=== PATIENT | female | born 1965 | race African-American/Black ===

== ENCOUNTER 2018-01-20 19:36 | Emergency (ER) | payer SELFPAY ==
[~2018-01-20] VITALS: Ht 165.1 cm; Wt 96.6 kg
[2018-01-20 20:05] VITALS: BP 109/76
[2018-01-20] MEDS ORDERED: ASPirin 81 mg TAB PO ONE (20:15)
[2018-01-20 20:38] LABS: Urine Bacteria NONE SEEN /hpf (None Seen); Urine Blood 1+ /uL (Negative); Urine Specific Gravity 1.021 (1.001-1.035); Urine WBC 1 /hpf (0 - 5)
[2018-01-20 20:59] LABS: Basophils # (auto) 0 uL; Basophils % (auto) 0.5 % (0.0-2.0); Eosinophils # (auto) 0.5 uL; Eosinophils % (auto) 5.7 % (0.0-7.0); Hematocrit 36.4 % (36.0-46.0); Hemoglobin 12.5 g/dL (12.2-16.2); Lymphocytes # (auto) 3.6 uL; Lymphocytes % (auto) 44.4 % (10.0-50.0); Mean Corpuscular Hemoglobin 30.6 pg (28.0-32.0); Mean Corpuscular Hgb Conc. 34.3 g/dL (32.0-36.0); Mean Corpuscular Volume 89.2 fL (80.0-100.0); Monocytes # (auto) 0.6 uL; Monocytes % (auto) 7.2 % (0.0-12.0); Neutrophils # (auto) 3.4 uL; Neutrophils % (auto) 42.2 % (37.0-80.0); Nucleated Red Blood Cells % 0.2 %; Platelet Count (auto) 290 10^3/uL (140-450); Red Blood Cells 4.09 10^6/uL (4.0-5.20); Red Cell Distribution Width 12.7 % (11.8-14.3); White Blood Cell 8.1 10^3/uL (4.4-10.8)
[2018-01-20 21:17] LABS: INR 0.89 (0.9-1.15); Partial Thromboplastin Time 27.8 sec (23.78-33.04); Prothrombin Time 9.6 sec (9.27-12.13)
[2018-01-20 21:26] LABS: Alanine Aminotransferase 21 U/L (13-56); Albumin 3.5 g/dL (3.4-5.0); Alkaline Phosphatase 67 U/L (45-117); Anion Gap 2 (5-15); Aspartate Aminotransferase 16 U/L (15-37); BUN/Creatinine Ratio 12.2; Bilirubin, Total 0.2 mg/dL (0.2-1.0); Blood Urea Nitrogen 9 mg/dL (7-18); Calcium 8.8 mg/dL (8.5-10.1); Carbon Dioxide 29 mmol/L (21-32); Chloride 110 mmol/L (98-107); GFR African American 106 mL/min; GFR Non-African American 88 mL/min; Glucose 104 mg/dL (74-106); Potassium 3.8 mmol/L (3.5-5.1); Sodium 141 mmol/L (136-145); Total Protein 7.8 g/dL (6.4-8.2)
== END 2018-01-21 01:00 | disposition left against medical advice (07) ==
LOC: ER 19:36
DX: R07.89 Other chest pain (principal); R06.02 Shortness of breath; Z53.21 Procedure and treatment not carried out due to patient leaving prior to being seen by health care provider
CPT/HCPCS: 36415; 71046; 80053; 81001; 84484; 85025; 85379; 85610; 85730

== ENCOUNTER 2018-06-25 14:34 | Inpatient (IN) | payer SELFPAY ==
[~2018-06-25] VITALS: Ht 165.1 cm; Wt 95.8 kg
[2018-06-25 15:07] LABS: Basophils # (auto) 0 uL; Basophils % (auto) 0.3 % (0.0-2.0); Eosinophils # (auto) 0.3 uL; Eosinophils % (auto) 4.1 % (0.0-7.0); Hematocrit 33.6 % (36.0-46.0); Hemoglobin 11.3 g/dL (12.2-16.2); Lymphocytes # (auto) 2.7 uL; Lymphocytes % (auto) 36.8 % (10.0-50.0); Mean Corpuscular Hgb Conc. 33.6 g/dL (32.0-36.0); Mean Corpuscular Volume 86.3 fL (80.0-100.0); Monocytes # (auto) 0.8 uL; Monocytes % (auto) 10.7 % (0.0-12.0); Neutrophils # (auto) 3.5 uL; Neutrophils % (auto) 48.1 % (37.0-80.0); Nucleated Red Blood Cells % 0.1 %; Platelet Count (auto) 301 10^3/uL (140-450); Red Blood Cells 3.89 10^6/uL (4.0-5.20); Red Cell Distribution Width 11.8 % (11.8-14.3); White Blood Cell 7.2 10^3/uL (4.4-10.8)
[2018-06-25] MEDS ORDERED: ALBUTEROL SULF 2.5 MG/0.5ML(0.5%) NEB SOLN HHN ONE (15:15)
[2018-06-25] MEDS ORDERED: predniSONE 20 MG TAB PO ONE ×2 (15:15)
[2018-06-25] MEDS ORDERED: IPRATROPIUM BROM 0.5 MG/2.5ML INH SOL HHN ONE (15:15)
[2018-06-25 15:23] LABS: Alanine Aminotransferase 43 U/L (13-56); Albumin 3.1 g/dL (3.4-5.0); Anion Gap 6 (5-15); Aspartate Aminotransferase 27 U/L (15-37); Blood Urea Nitrogen 12 mg/dL (7-18); Calcium 8.9 mg/dL (8.5-10.1); Carbon Dioxide 28 mmol/L (21-32); Chloride 108 mmol/L (98-107); Glucose 101 mg/dL (74-106); Potassium 3.6 mmol/L (3.5-5.1); Sodium 142 mmol/L (136-145)
[2018-06-25 15:28] LABS: Alkaline Phosphatase 48 U/L (45-117); Bilirubin, Total 0.3 mg/dL (0.2-1.0); GFR African American 167 mL/min; GFR Non-African American 138 mL/min; Total Protein 7.1 g/dL (6.4-8.2)
[2018-06-25 15:59] LABS: INR 0.95 (0.9-1.15); Partial Thromboplastin Time 25.6 sec (23.78-33.04); Prothrombin Time 10.2 sec (9.27-12.13)
[2018-06-25] MEDS ORDERED: SODIUM CHLORIDE 0.9% 2,950 ML IV ONE (20:00)
[2018-06-25] MEDS ORDERED: METOPROLOL TARTRATE 1MG/1ML-5ML VIAL IV ONE ×2 (20:00→20:45)
[2018-06-25] MEDS ORDERED: SODIUM CHLORIDE 0.9% 1,000 ML IV ONE (21:00)
[2018-06-25] MEDS ORDERED: ONDANSETRON HCL 4 MG/2 ML VIAL IV PRN (23:15)
[2018-06-25] MEDS ORDERED: ALPRAZolam 0.25 MG TAB PO PRN (23:15)
[2018-06-25] MEDS ORDERED: MORPHINE SULFATE 4 MG/ML SYR/VIAL IV PRN (23:15)
[2018-06-25] MEDS ORDERED: ACETAMINOPHEN 500 MG TAB PO PRN (23:15)
[2018-06-26 00:18] LABS: Free T4 (Free Thyroxine) 4.51 ng/dL (0.89-1.76)
[2018-06-26 00:19] LABS: T3 Total 5.54 ng/mL (0.60-1.81)
--- NOTE | 2018-06-26 00:30 | NUR ---
Telemetry admit from ER JALYN OLSEN admitted to Telemetry unit after SBAR received. Patient oriented to GENTRY PATINO, primary RN, unit, room, bed, and unit policies regarding patient care and visiting hours. Patient now on continuous telemetry monitoring, tele box # [id number] and telemetry reading on arrival to unit is ST 100's. Patient, awake, alert, and oriented x4. No S/S of distress/SOB on room air. Denies chest pain. Bed locked and in lowest position and call light is within reach. Instructed on POC and to call for assist PRN, and patient verbalized understanding. Will continue to monitor for changes Q1hr and PRN.
[2018-06-26 05:40] VITALS: BP 142/68
[2018-06-26 05:43] LABS: BUN/Creatinine Ratio 31.3; Calcium 8.7 mg/dL (8.5-10.1)
[2018-06-26 05:46] LABS: Basophils # (auto) 0 uL; Basophils % (auto) 0.1 % (0.0-2.0); Eosinophils # (auto) 0 uL; Hematocrit 30.1 % (36.0-46.0); Hemoglobin 10.4 g/dL (12.2-16.2); Lymphocytes # (auto) 1.4 uL; Lymphocytes % (auto) 20.8 % (10.0-50.0); Mean Corpuscular Hemoglobin 29.4 pg (28.0-32.0); Mean Corpuscular Hgb Conc. 34.4 g/dL (32.0-36.0); Mean Corpuscular Volume 85.3 fL (80.0-100.0); Monocytes # (auto) 0.2 uL; Monocytes % (auto) 3.4 % (0.0-12.0); Neutrophils # (auto) 5.2 uL; Neutrophils % (auto) 75.7 % (37.0-80.0); Nucleated Red Blood Cells % 0.1 %; Platelet Count (auto) 281 10^3/uL (140-450); Red Blood Cells 3.53 10^6/uL (4.0-5.20); Red Cell Distribution Width 11.8 % (11.8-14.3); White Blood Cell 6.9 10^3/uL (4.4-10.8)
[2018-06-26] MEDS: FAMOTIDINE 20 MG TAB PO SCH ×2 (06:08→17:50)
--- NOTE | 2018-06-26 07:38 | NUR ---
OPENING SHIFT PATIENT IS AWAKE AND ALERT, ORIENTED X4. NO S/S OF DISTRESS, OR SOB. PATIENT DENIES PAIN AT THIS TIME. RESPIRATIONS ARE EVEN AND UNLABORED. DISCUSSED POC WITH PATIENT, PATIENT VERBALIZED UNDERSTANDING. BED IS IN LOWEST POSITION, SIDE RAILS UPX2, AND CALL LIGHT WITHIN REACH. WILL CONTINUE TO MONITOR Q1 HOUR AND PRN.
[2018-06-26 09:00] VITALS: BP 144/55
[2018-06-26 09:30] LABS: Urine Bacteria NONE SEEN /hpf (None Seen); Urine Blood Negative /uL (Negative); Urine WBC 1 /hpf (0 - 5)
[2018-06-26] MEDS ORDERED: PROPRANOLOL HCL 20 MG TAB PO SCH (10:00)
[2018-06-26] MEDS: ASPirin-EC 81 mg tab PO SCH (10:26)
[2018-06-26 12:28] VITALS: BP 117/44
--- NOTE | 2018-06-26 13:50 | NUR ---
DR. Henrik MARC M.D AT BEDSIDE. DISCUSSED POC WITH PATIENT. PATIENT VERBALIZED UNDERSTANDING.
--- NOTE | 2018-06-26 14:39 | NUR ---
FAMILY AT BEDSIDE UPDATED PATIENT THAT CARDIOLOGY CONSULT HAS BEEN CALLED INTO DR. VILLATORO. ANSWERED ALL QUESTIONS AND CONCERNS. PATIENT SHOWS NO S/S OF DISTRESS, SOB, OR PAIN. WILL CONTINUE TO MONITOR Q1 HOUR AND PRN
[2018-06-26] MEDS ORDERED: IOHEXOL 350 MG/ML 100ML IJ ONE (15:37)
--- NOTE | 2018-06-26 16:25 | NUR ---
PATIENT DOWN FOR C/T SCAN PATIENT DOWN FOR C/T ANGIO SCAN OF THE CHEST PATIENT TRANSPORTED VIA WHEEL CHAIR BY STAFF NO S/S OF DISTRESS, SOB, OR PAIN AT TIME OF DEPARTURE
[2018-06-26 17:00] VITALS: BP 123/63
--- NOTE | 2018-06-26 18:40 | NUR ---
DR SHAUNA Seaman AT BEDSIDE DISCUSSING POC
--- NOTE | 2018-06-26 18:50 | NUR ---
END OF SHIFT PATIENT AWAKE IN BED WATCHING T.V. NO S/S OF DISTRESS, SOB, OR PAIN. RESPIRATIONS EVEN AND UNLABORED. BED IS IN LOWEST POSITION, SIDE RAILS UP X2, AND CALL LIGHT WITHIN REACH. WILL ENDORSE CARE TO NOC R.N.
--- NOTE | 2018-06-26 19:30 | NUR ---
Opening Shift Note Assumed care of patient, awake and alert x4. No S/S of distress/SOB on room air. Denies pain. Instructed on POC and to call for assist PRN, will continue to monitor for changes Q1hr and PRN.
[2018-06-26 21:30] VITALS: BP 127/83
--- NOTE | 2018-06-26 22:00 | NUR ---
IV removal & IV insertion IV DC'd with clean sterile technique, catheter fully intact. Pressure dressing applied to site. Patient tolerated well. IV insertion IV access obtained, via clean sterile technique by inserting 20 gauge catheter at [facility] after 2 attempts. IV secured properly. No trauma to site. Patient tolerated procedure well.
[2018-06-26] MEDS: PROPRANOLOL HCL 20 MG TAB PO SCH (22:45)
--- NOTE | 2018-06-27 01:34 | NUR ---
IV insertion IV access obtained, via clean sterile technique by inserting 22 gauge catheter at RIGHT HAND after 3 attempts. IV secured properly. No trauma to site.
[2018-06-27 05:00] VITALS: BP 119/50
[2018-06-27] MEDS: FAMOTIDINE 20 MG TAB PO SCH ×2 (05:48→16:34)
--- NOTE | 2018-06-27 07:47 | NUR ---
Opening Shift Note Assumed care of patient, lying in bed resting, No S/S of distress/SOB or pain. Instructed on POC and to call for assist PRN, will continue to monitor for changes Q1hr and PRN. bed in lowest position, side rails up x2 call light within reach.
[2018-06-27] MEDS ORDERED: ADENOSINE 80 MG in GIVE UN-DILUTED 0 ML IV STA (08:21)
--- NOTE | 2018-06-27 08:56 | NUR ---
Patient off unit for stress test.
[2018-06-27 09:00] VITALS: BP 140/69
--- NOTE | 2018-06-27 09:26 | NUR ---
Dr Grzegorz FLOYD in to see patient, patient still off unit for stress test, made aware, New orders placed by .
--- NOTE | 2018-06-27 10:45 | NUR ---
Patient back on unit from stress test, per Nuc Med, test is complete and patient can eat.
[2018-06-27 11:21] LABS: % Iron Saturation 17.7 % (15-50)
[2018-06-27] MEDS: ASPirin-EC 81 mg tab PO SCH (11:37)
[2018-06-27] MEDS: PROPRANOLOL HCL 20 MG TAB PO SCH ×2 (11:38→22:09)
--- NOTE | 2018-06-27 12:10 | NUR ---
IV PATIENT HAS 2 PATENT IV'S. PATIENT IS REQUESTING TO HAVE HER IV IN HER RIGHT HAND TAKEN OUT. I HAVE INFORMED HER THAT IF SHE HAS TO HAVE ANOTHER PROCEDURE/TEST THAT REQUIRES 2 IV'S AND THAT SHE MAY NEED TO HAVE ANOTHER IV PLACED, PATIENT VERBALIZED UNDERSTANDING AND IS STILL REQUESTING TO HAVE THE IV IN HER RIGHT HAND TAKEN OUT. IV removal IV DC'd with clean sterile technique, catheter fully intact. Pressure dressing applied to site. Patient tolerated well. NOTE:
[2018-06-27 13:00] VITALS: BP 117/88
--- NOTE | 2018-06-27 15:17 | NUR ---
stool sample sent to lab
[2018-06-27 17:00] VITALS: BP 103/61
--- NOTE | 2018-06-27 19:30 | NUR ---
Opening Shift Note Assumed care of patient, awake and alert. No S/S of distress/SOB or pain. Instructed on POC and to call for assist PRN, will continue to monitor for changes Q1hr and PRN.
--- NOTE | 2018-06-27 21:18 | NUR ---
PATIENT STATED THAT SHE DOES NOT WANT TO HAVE THE HEART CATHETERIZATION PERFORMED TOMORROW. PERFORMED PATIENT TEACHING REGARDING DISEASE PROCESS, MEDICATION, AND THE PROCEDURE. PATIENT IS VERY UNSURE. PATIENT STATED SHE NEEDED MORE TIME TO THINK ABOUT IT. WILL INFORM MD.
--- NOTE | 2018-06-27 21:34 | NUR ---
INFORMED DR. VILLATORO REGARDING REFUSAL FOR PROCEDURE - RECEIVED NEW ORDERS TO CANCEL PROCEDURE.
[2018-06-28 05:19] VITALS: BP 132/52
[2018-06-28] MEDS: FAMOTIDINE 20 MG TAB PO SCH (06:13)
[2018-06-28 09:00] VITALS: BP 145/62
[2018-06-28] MEDS: ASPirin-EC 81 mg tab PO SCH (09:56)
[2018-06-28] MEDS: PROPRANOLOL HCL 20 MG TAB PO SCH (09:56)
--- NOTE | 2018-06-28 11:03 | NUR ---
patient has now consented to a heart cath. dr floyd states his schedule is full and cannot treat patient. per dr barahona call in consult to dr vazquez.
--- NOTE | 2018-06-28 12:27 | NUR ---
dr vazquez saw patient and patient asked if there was an alternative to heart cath. dr vazquez advised medication. patient again declined heart cath. will notify dr barahona
[2018-06-28 13:07] VITALS: BP 139/88
[2018-06-28 17:18] VITALS: BP 130/58
== END 2018-06-28 17:00 | disposition home or self-care (01) | DRG 644 ==
LOC: ER 14:37 → TELE 23:21 → TELE-CENTR 23:54
PROVIDERS: ADMIT Nurse Practitioner Family; ATTEND Family Medicine
DX: E05.00 Thyrotoxicosis with diffuse goiter without thyrotoxic crisis or storm (principal); E44.1 Mild protein-calorie malnutrition; R00.0 Tachycardia, unspecified; D63.8 Anemia in other chronic diseases classified elsewhere; Z68.35 Body mass index [BMI] 35.0-35.9, adult; Z82.49 Family history of ischemic heart disease and other diseases of the circulatory system
CPT/HCPCS: 36415; 71046; 71275; 76536; 78452; 80048; 80053; 80061; 81001; 82270; 82607; 83540; 83550; 83735; 83880; 84439; 84443; 84480; 84484; 85025; 85379; 85610; 85730; 87804; 93005; 93017; 94640; 94761; 96361; 96365; 96375; G0378; J0153